=== PATIENT | female | born 1980 | race Two or more races ===

== ENCOUNTER → 2018-05-21 | Outpatient (CLI) | payer MEDICAID, OTHER ==
[~2018-05-21] MED LIST: FLUO20TA25 PO; HYDR25TA11 PO; IBUP-1223 PO; LORA-439 PO; None per pt.; OMEP-110 PO
== END | disposition home or self-care (01) ==
LOC: STAR 11:54
PROVIDERS: ATTEND Obstetrics & Gynecology Female Pelvic Medicine and Reconstructive Surgery
DX: Z02.9 Encounter for administrative examinations, unspecified (principal)

== ENCOUNTER 2018-05-27 05:51 | Day surgery (SDC) | payer MEDICAID, OTHER ==
[~2018-05-27] VITALS: Ht 157.5 cm; Wt 67.4 kg
[2018-05-27] MEDS ORDERED: FUROSEMIDE 20 MG/2 ML ONE (06:19)
[2018-05-27] MEDS ORDERED: BUPIVACAINE/PF-EPI 0.25% 1:200K ONE (06:19)
[2018-05-27] MEDS ORDERED: NEOMY/POLYMYXIN B GU IRR. 1 ML IRRIG ONE (06:20)
[2018-05-27 06:23] VITALS: BP 117/80
[2018-05-27] MEDS ORDERED: LACTATED RINGERS 1,000 ML IV SCH (06:25)
[2018-05-27] MEDS ORDERED: CEFAZOLIN 1,000 MG ONE (07:19)
[2018-05-27] MEDS ORDERED: ONDANSETRON 2MG/ML, 2ML ONE (07:19)
[2018-05-27] MEDS ORDERED: METOCLOPRAMIDE 5 MG/ML, 2ML ONE (07:19)
[2018-05-27] MEDS ORDERED: PROPOFOL 10 MG/ML, 20ML ONE (07:19)
[2018-05-27] MEDS ORDERED: NEOSTIGMINE 1 MG/ML, 10ML ONE ×2 (07:19→08:22)
[2018-05-27] MEDS ORDERED: GLYCOPYRROLATE 0.2MG/1ML, 5ML ONE (07:19)
[2018-05-27] MEDS ORDERED: DEXAMETHASONE 4 MG/ML, 1ML ONE (07:19)
[2018-05-27] MEDS ORDERED: SCOPOLAMINE PATCH, 1.5MG PATCH.TD72 TD ONE (07:20)
[2018-05-27] MEDS ORDERED: MIDAZOLAM 1 MG/ML, 2ML ONE (07:20)
[2018-05-27] MEDS ORDERED: FENTANYL PF 100 MCG/2ML ONE ×3 (07:21→09:01)
[2018-05-27] MEDS ORDERED: SUGAMMADEX 200 MG/2 ML IVPush ONE (08:25)
[2018-05-27] MEDS ORDERED: MEPERIDINE/PF 50 MG/ML ONE (08:29)
[2018-05-27] MEDS ORDERED: LABETALOL 5MG/ML, 20ML IV PRN (08:30)
[2018-05-27] MEDS ORDERED: ONDANSETRON 2MG/ML, 2ML IVPush PRN (08:30)
[2018-05-27] MEDS ORDERED: OXYcodone 5 MG/5 ML ORAL.SOL UDC PO PRN (08:30)
[2018-05-27] MEDS ORDERED: HYDROmorphone 1 MG/ML, 1ML IV PRN (08:30)
[2018-05-27] MEDS ORDERED: MIDAZOLAM 1 MG/ML, 2ML IV PRN (08:30)
[2018-05-27] MEDS: MEPERIDINE/PF 25MG/0.5ML IVPush PRN ×2 (08:35→08:41)
[2018-05-27] MEDS ORDERED: OXYcodone 5 MG/5 ML ORAL.SOL UDC ONE (08:48)
[2018-05-27] MEDS: FENTANYL PF 100 MCG/2ML IV PRN ×2 (08:50→09:03)
[2018-05-27] MEDS ORDERED: KETOROLAC 30 MG/1 ML ONE (09:14)
[2018-05-27] MEDS ORDERED: KETOROLAC 30 MG/1 ML IVPush PRN (09:30)
== END 2018-05-27 12:45 | disposition home or self-care (01) ==
LOC: OUT 05:51
PROVIDERS: ATTEND Obstetrics & Gynecology Female Pelvic Medicine and Reconstructive Surgery
DX: N39.3 Stress incontinence (female) (male) (principal); N80.3 Endometriosis of pelvic peritoneum; N94.10 Unspecified dyspareunia; F32.9 Major depressive disorder, single episode, unspecified; Z79.899 Other long term (current) drug therapy; Z98.890 Other specified postprocedural states; Z79.1 Long term (current) use of non-steroidal anti-inflammatories (NSAID); Z90.710 Acquired absence of both cervix and uterus; Z90.721 Acquired absence of ovaries, unilateral; Z98.51 Tubal ligation status
CPT/HCPCS: 57265; 57288; 58662; C1771; J0690; J1100; J1885; J2175; J2250; J2405; J2704; J2710; J2765; J3010; J3490; J7120; J1940